=== PATIENT | female | born 1995 | race Caucasian/White ===

== ENCOUNTER 2018-10-02 09:48 | Emergency (ER) | payer OTHER, SELFPAY ==
--- NOTE | 2018-10-02 10:53 | CT ---
HEAD CT WITHOUT CONTRAST: HISTORY: The patient was kicked by a horse. Level II trauma. Facial laceration. Pain. COMPARISON: None. FINDINGS: No parenchymal hemorrhage. No extraaxial hematoma. No midline shift. Basilar cisterns are patent. Brain volume, age appropriate. Cortical lofton-white matter differentiation is preserved. No evidence of hydrocephalus. Calvarium is intact. Left zygomatic fracture. Multiple fractures involving the left orbit, left maxillary sinus. Refer t o dedicated maxillofacial CT for further detail. IMPRESSION: 1. Multiple left maxillofacial fractures. Refer to separate maxillofacial CT report for further det ail. 2. No intracranial posttraumatic sequelae. POS: [facility]
--- NOTE | 2018-10-02 10:59 | CT ---
CT CERVICAL SPINE WITHOUT CONTRAST: HISTORY: The patient was kicked by a horse. Posttraumatic pain. COMPARISON: None. TECHNIQUE: CT cervical spine is performed without contrast. Reformatted images are submitted for interpretation . FINDINGS: No craniocervical dissociation. Appropriate alignment of the lateral masses of C1 and C2 as well as the facets. Intact odontoid process. No abnormalities with regard to the soft tissues of the neck. Upper mediastinum and lung apices are unremarkable. Central spinal canal and neural foramen are patent. Limited evaluation due to technique. Cervical spine vertebral body height is maintained. There is no fracture. IMPRESSION: No cervical spine fracture. POS: [facility]
--- NOTE | 2018-10-02 11:02 | RAD ---
LEFT FEMUR 2 VIEWS: HISTORY: The patient was kicked by a horse. Laceration. COMPARISON: None. FINDINGS: No fracture. No cortical irregularity or periosteal reaction. No radiopaque foreign body. IMPRESSION: No fracture. POS: [facility]
[2018-10-02] MEDS ORDERED: Ondansetron PF 4 MG/2 ML Vial ONE ×2 (11:09→11:10)
[2018-10-02] MEDS ORDERED: Morphine 4 MG/ML VIAL ONE ×2 (11:09→11:10)
--- NOTE | 2018-10-02 11:27 | RAD ---
LEFT FOREARM 2 VIEWS: Date: HISTORY: Injury. COMPARISON: None. FINDINGS: No acute displaced fracture or malalignment. Evaluation of the elbow is limited. IMPRESSION: Intact forearm. POS: [facility]
--- NOTE | 2018-10-02 11:37 | CT ---
FACIAL BONES CT WITHOUT CONTRAST: Date: 10/02/18 HISTORY: Status post trauma. Patient was kicked in the face by a horse. Visual disturbance. COMPARISON: None. TECHNIQUE: Maxillofacial CT is performed in the axial plane. Reformatted images are submitted for interpretation . FINDINGS: There is partial opacification of the left frontal sinus and anterior left ethmoid air cells. There i s a hemorrhage/air fluid level involving the left maxillary sinus. Right maxillary sinus and bilatera l sphenoid sinuses are adequately aerated. Adequate mastoid air cell aeration. The mandible and maxil la are intact. Pterygoid plates are intact. There is abnormal attenuation involving the left ostiomea andrei complex, likely due to post-traumatic blood products. Right ostiomeatal complex is patent. Nasal septum is intact. Comminuted fracture involving the left maxillary sinus. Fracture fragments involve the anterior and p osterior margin of the sinus. There is associated anterior and posterior subcutaneous emphysema. Ther e is edema and hematoma involving the soft tissues anterior to the left maxillary sinus extending in a cephalad direction into the left preseptal space and left infraorbital soft tissues. There is a fra cture involving the lateral wall of the left orbit. Additionally, there is a comminuted fracture with multiple fragments involving the floor of the left orbit. There is a small amount of intraorbital savage bcutaneous air. No obvious herniation of intraorbital contents. Correlate clinically for entrapment. Symmetric attenuation of the optic nerves and ocular rectus muscles. Both globes appear to be intact and bilateral ocular lenses are appropriately located. Comminuted fracture involving the left zygomatic arch. IMPRESSION: 1. Comminuted fractures involving the left maxillary sinus, left orbit, and left zygomatic arch. Ass ociated post-traumatic soft tissue swelling and hematoma. There are post-traumatic changes in the lef t maxillary sinus. 2. Subcutaneous air in the left orbit secondary to trauma. Nod definite evidence of herniation of in traorbital contents into the left maxillary sinus. Correlate clinically for entrapment. Results of the face CT, brain CT, and cervical spine CT discussed with Dr. De Paz on 10/02/18 at 102 9 hours. CODE CR. POS: [facility]
[2018-10-02] MEDS ORDERED: Triple Antibiotic Oint 1 GM Packet ONE (11:40)
[2018-10-02] MEDS ORDERED: Bacitracin Zinc 1 Packet ONE (13:06)
== END 2018-10-02 13:20 | disposition home or self-care (01) ==
LOC: ERS 09:48
DX: S02.82XA Fracture of other specified skull and facial bones, left side, initial encounter for closed fracture (principal); F41.9 Anxiety disorder, unspecified; F32.9 Major depressive disorder, single episode, unspecified; Z79.01 Long term (current) use of anticoagulants; Z79.899 Other long term (current) drug therapy; W55.12XA Struck by horse, initial encounter
CPT/HCPCS: 70450; 70486; 72125; 96374; 96375; G0390; J2270; J2405